=== PATIENT | male | born 1965 | race African-American/Black ===

== ENCOUNTER 2018-08-17 21:10 | Emergency (ER) | payer SELFPAY ==
[~2018-08-17] VITALS: Ht 182.9 cm; Wt 72.6 kg
[2018-08-17 21:12] VITALS: BP 173/98
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
[2018-08-17] MEDS ORDERED: ATORVASTATIN CA20 MG ORAL (21:15)
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
--- NOTE | 2018-08-17 21:25 | NUR ---
ED Nurse Note: Patient went down for CT of head.
--- NOTE | 2018-08-17 21:35 | NUR ---
ED Nurse Note: Patient returned from CT.
--- NOTE | 2018-08-17 21:45 | NUR ---
ED Nurse Note: Officers at bedside interviewing patient.
--- NOTE | 2018-08-17 22:00 | NUR ---
ED Nurse Note: Patient cleared for discharge, ambulatory with steady gait, A&Ox4, tolerated lupis well. Patient verbalized understanding of discharge instructions. ID band removed. Patient escorted to discharge desk. patient departed with all personal belongings.
[2018-08-17 22:05] VITALS: BP 131/81
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
== END 2018-08-17 22:00 | disposition home or self-care (01) ==
LOC: EDBD 21:10 → EMR 21:27
DX: S09.90XA Unspecified injury of head, initial encounter (principal); S01.01XA Laceration without foreign body of scalp, initial encounter; I10 Essential (primary) hypertension; Y00.XXXA Assault by blunt object, initial encounter
CPT/HCPCS: 70450; 99284